=== PATIENT | female | born 1965 | race Caucasian/White ===

== ENCOUNTER 2024-01-18 10:49 | Emergency (ER) | payer OTHER, SELFPAY ==
--- NOTE | 2024-01-18 10:57 | ED.WOUNDLAC ---
HPI - Wound/Laceration General Chief Complaint: Wound/Laceration Stated Complaint: laceration head Time Seen by Provider: 01/18/24 10:52 Source: patient Mode of arrival: ambulatory Limitations: no limitations History of Present Illness HPI narrative: Nedra is a 58-year-old female patient presenting to the emergency room with complaints of a old laceration to her forehead. She states that she acquired this laceration on Wednesday. Has been to multiple ERs to have it stitched up. Patient is agitated is, aggressive, and cussing at the staff. States that nobody will touch this area. Patient is homeless and walked to our facility. Patient is not allowing anybody to touch the wound. Patient had wound covered with a or piece of toilet paper. That was removed in the ER by the patient. Unable to assess patient and she is verbally aggressive and not allowing this provider to touch her to exam in the wound. Offer to clean the wound and give tetanus status and if needed to a CT of her head and patient is still being verbally aggressive and not allowing any type of assessment or care. Related Data Allergies Allergy/AdvReac Type Severity Reaction Status Date / Time No Known Allergies Allergy Unverified 04/05/18 03:04 Review of Systems Review of Systems: Pertinent positives per HPI. Patient denies any fever, chills, rash, headache, visual changes, dizziness, cough, runny nose, sore throat, shortness of breath, chest pain, palpitations, nausea, vomiting, diarrhea, constipation, abdominal pain, or any urinary issues. PMFSH Comments At the time of my signature, I reviewed and agree with the nursing past medical, surgical, social, and family history. There is no relevant family history pertinent to the patient complaint. Exam Narrative: General: Well-developed, well nourished, poor hygiene, anxious, agitated, yelling Head: Normocephalic, approximately a 5 cm forehead laceration that is scabbed over, no localized redness seen Cardio: Skin is pink warm and dry. Appears to be adequately perfused Resp: No respiratory distress, patient speaking at a fast rate without having to take breaths in between few words. Integumentary: [place], warm, and dry, approximately 5 cm forehead laceration that is scabbed over without sign of surrounding infection. Course Course Emergency Course: Portions of this record may have been created with voice recognition software. Vital Signs Vital signs: Vital signs reviewed MDM - Wound/Laceration MDM Narrative Medical decision making narrative: At the time of visit patient is sitting in the exam chair yelling/swearing/agitated. Will not allow staff to touch the wound. Is requesting stitches but will not allow any kind of examination. Patient appears to be nontoxic. Plan: Patient will not allow any type of assessment of the wound. Is not willing to get a tetanus shot or CT scan of the head. Patient eloped after speaking with the nurses and after my evaluation. Differential Diagnosis Differential diagnosis: Likely laceration, abscess, abrasion, avulsion of skin and other (Poor hygiene, agitated, mental health illness, skin infection, head injury) Discharge Plan Discharge Clinical Impression: Laceration Patient Disposition: Elopement After Seen by Prov Condition: Stable Follow-up/Referrals: UNKNOWN,DOCTOR [Primary Care Provider] - Time of Disposition: 11:30 Quality NIHSS Nursing Documentation ED NIHSS nursing documentation: reviewed/agree
[2024-01-18 11:23] VITALS: BP 157/80; PULSE 77; RESP 16; TEMP 36.6; O2SAT 100
== END 2024-01-18 11:58 | disposition left against medical advice (07) ==
PROVIDERS: Emergency Provider Nurse Practitioner Family
DX: S01.81XA Laceration without foreign body of other part of head, initial encounter (principal); R45.1 Restlessness and agitation; Z59.00 Homelessness unspecified; X58.XXXA Exposure to other specified factors, initial encounter
CPT/HCPCS: 99281